=== PATIENT | male | born 1955 | race Caucasian/White ===

== ENCOUNTER 2017-08-10 11:44 | Observation (INO) | payer OTHER ==
[2017-08-10] MEDS: ASPIRIN 81 MG CHEW TABLET PO (12:06)
[2017-08-10 12:11] LABS: BASO # 0.1 10^3/uL (0.0-0.2); BASO % 1.2 % (0.0-1.0); EOS # 0.3 10^3/uL (0.0-0.50); EOS % 3.4 % (0.0-3.0); HEMATOCRIT 42.4 % (42.0-52.0); HEMOGLOBIN 14.9 g/dl (14.0-18.0); IMMATURE GRANULOCYTE % 0.5 % (0-3.0); LYMPH # 3.1 10^3/uL (1.5-4.5); LYMPH % 31.2 % (24.0-44.0); MEAN CORPUSCULAR HEMOGLOBIN 32.7 pg (27.0-33.0); MEAN CORPUSCULAR HGB CONC 35.1 g/dl (32.0-36.5); MEAN CORPUSCULAR VOLUME 93.2 fl (80.0-96.0); MONO # 0.6 10^3/uL (0.0-0.8); MONO % 5.9 % (0.0-5.0); NEUTROPHILS # 5.8 10^3/uL (1.8-7.7); NEUTROPHILS % 57.8 % (36.0-66.0); PLATELET COUNT, AUTOMATED 321 10^3/uL (150-450); RED BLOOD COUNT 4.55 10^6/uL (4.30-6.10); RED CELL DISTRIBUTION WIDTH 12.6 % (11.5-14.5)
[2017-08-10 12:39] LABS: NT-PRO BNP 249 PG/ML (<125)
[2017-08-10 12:43] LABS: ALBUMIN 3.9 GM/DL (3.2-5.2); ALBUMIN/GLOBULIN RATIO 0.98 (1.00-1.93); ALKALINE PHOSPHATASE 66 U/L (45-117); ALT/SGPT 26 U/L (12-78); ANION GAP 9 MEQ/L (8-16); AST/SGOT 13 U/L (7-37); BILIRUBIN,DIRECT < 0.1 MG/DL (0.0-0.2); BILIRUBIN,TOTAL 0.3 MG/DL (0.2-1.0); BLOOD UREA NITROGEN 13 MG/DL (7-18); CALCIUM LEVEL 8.8 MG/DL (8.8-10.2); CARBON DIOXIDE LEVEL 23 MEQ/L (21-32); CHLORIDE LEVEL 107 MEQ/L (98-107); CK-MB VALUE MASS 1.3 NG/ML (0.0-3.6); CPK CREATINE PHOSPHOKINASE 81 U/L (39-308); GLOMERULAR FILTRATION RATE > 60.0 (>49); GLUCOSE, FASTING 142 MG/DL (70-100); LIPASE 93 U/L (73-393); SODIUM LEVEL 139 MEQ/L (136-145); TOTAL PROTEIN 7.9 GM/DL (6.4-8.2); TROPONIN I < 0.02 NG/ML (< 0.10)
[2017-08-10] MEDS ORDERED: ISOVUE-370 76% 100ML VIAL (Q9967) As Ordered (15:05)
[2017-08-10 15:18] LABS: APPEARANCE, URINE CLEAR (CLEAR); BACTERIA, URINE AUTO NEGATIVE (NEGATIVE); BILIRUBIN, URINE AUTO NEGATIVE (NEGATIVE); BLOOD, URINE BLOOD NEGATIVE (NEGATIVE); COLOR, URINE STRAW (YELLOW); GLUCOSE, URINE (UA) AUTO NEGATIVE (NEGATIVE); KETONE, URINE AUTO NEGATIVE (NEGATIVE); LEUKOCYTE ESTERASE, URINE AUTO NEGATIVE (NEGATIVE); NITRITE, URINE AUTO NEGATIVE (NEGATIVE); PROTEIN, URINE AUTO NEGATIVE (NEGATIVE); RBC, URINE AUTO 0 /HPF (0-3); SPECIFIC GRAVITY URINE AUTO 1.004 (1.002-1.035); SQUAMOUS EPITHELIAL CELL UR AU 0 /HPF (0-6); UROBILINOGEN, URINE AUTO 0.2 mg/dL (0.0-2.0); WBC, URINE AUTO 0 /HPF (0-3)
[2017-08-10] MEDS: IPRATROPIUM 0.5MG/ALBUTEROL 2.5MG INH SOL UD 3ML (DUONEB)(J7620) NEB (15:52)
[2017-08-10 16:08] LABS: ABG BASE EXCESS -1.6 (-2.0-2.0); ABG HCO3 21.1 MEQ/L (22.0-26.0); ABG O2 SATURATION 99.6 % (95.0-99.0); ABG PARTIAL PRESSURE CO2 30.4 mmHg (35.0-45.0); ABG PARTIAL PRESSURE O2 253.1 mmHg (75.0-100.0); ABG STANDARD HCO3 23.2 MEQ/L (22.0-26.0); ABG TOTAL CO2 22.1 MEQ/L (23.0-31.0)
[2017-08-10] MEDS: NICOTINE 21MG/24HR 1 EA TRANSDERMAL TD (18:04)
[2017-08-10 20:26] LABS: CHOLESTEROL LEVEL 234 MG/DL (<200); CHOLESTEROL RISK RATIO 5.571 (<5); HDL CHOLESTEROL 42 MG/DL (>40); LDL CHOLESTEROL 154.6 MG/DL (<100); NON-HDL-C 192 MG/DL; TRIGLYCERIDES LEVEL 187 MG/DL (<150)
[2017-08-10 20:27] LABS: TROPONIN I < 0.02 NG/ML (< 0.10)
[2017-08-10] MEDS ORDERED: SLF 3 ML SYR IV (22:45)
[2017-08-11 01:40] LABS: TROPONIN I < 0.02 NG/ML (< 0.10)
[2017-08-11 04:37] LABS: BASO # 0.2 10^3/uL (0.0-0.2); BASO % 1.4 % (0.0-1.0); EOS # 0.6 10^3/uL (0.0-0.50); EOS % 5.8 % (0.0-3.0); HEMATOCRIT 37.9 % (42.0-52.0); IMMATURE GRANULOCYTE % 0.3 % (0-3.0); LYMPH # 3.4 10^3/uL (1.5-4.5); LYMPH % 30.9 % (24.0-44.0); MEAN CORPUSCULAR HEMOGLOBIN 32.3 pg (27.0-33.0); MEAN CORPUSCULAR HGB CONC 34.3 g/dl (32.0-36.5); MEAN CORPUSCULAR VOLUME 94.3 fl (80.0-96.0); MONO # 0.7 10^3/uL (0.0-0.8); MONO % 6.6 % (0.0-5.0); NEUTROPHILS # 6.1 10^3/uL (1.8-7.7); PLATELET COUNT, AUTOMATED 295 10^3/uL (150-450); RED BLOOD COUNT 4.02 10^6/uL (4.30-6.10); RED CELL DISTRIBUTION WIDTH 12.6 % (11.5-14.5)
[2017-08-11 04:58] LABS: ANION GAP 5 MEQ/L (8-16); BLOOD UREA NITROGEN 12 MG/DL (7-18); CALCIUM LEVEL 8.3 MG/DL (8.8-10.2); CARBON DIOXIDE LEVEL 26 MEQ/L (21-32); CHLORIDE LEVEL 109 MEQ/L (98-107); GLOMERULAR FILTRATION RATE > 60.0 (>49); GLUCOSE, FASTING 140 MG/DL (70-100); MAGNESIUM LEVEL 2.1 MG/DL (1.8-2.4); POTASSIUM SERUM 4.7 MEQ/L (3.5-5.1); SODIUM LEVEL 140 MEQ/L (136-145)
[2017-08-11] MEDS: SLF 3 ML SYR IV ×2 (06:48→13:20)
[2017-08-11] MEDS: FLUoxetine 20 MG CAP PO (08:42)
[2017-08-11] MEDS: FLUoxetine 10 MG CAP PO (08:42)
[2017-08-11] MEDS: ASPIRIN 325 MG TAB PO (08:42)
[2017-08-11 19:38] LABS: BEDSIDE GLUCOSE 148 MG/DL (80-115)
== END 2017-08-11 17:00 | disposition home or self-care (01) ==
LOC: M ED 11:44 → M ED INP 19:03 → M PCU 21:37
DX: R07.89 Other chest pain (principal); R00.1 Bradycardia, unspecified; I10 Essential (primary) hypertension; F32.9 Major depressive disorder, single episode, unspecified; R06.02 Shortness of breath; Z79.899 Other long term (current) drug therapy; F17.210 Nicotine dependence, cigarettes, uncomplicated
CPT/HCPCS: Q9967

== ENCOUNTER 2018-11-27 17:03 | Emergency (ER) | payer OTHER ==
[~2018-11-27] VITALS: Ht 177.8 cm; Wt 95.3 kg
[~2018-11-27 17:03] MED LIST: ASPI81TA26 PO; ATOR40TA75 PO; FLUO10CA8 PO; FLUO40CA PO; NORV5TAB PO
[2018-11-27 17:49] LABS: BASO # 0.1 10^3/uL (0.0-0.2); BASO % 0.8 % (0.0-1.0); EOS # 0.2 10^3/uL (0.0-0.50); EOS % 1.5 % (0.0-3.0); HEMATOCRIT 38.3 % (42.0-52.0); HEMOGLOBIN 13.3 g/dl (13.5-17.5); LYMPH # 2.1 10^3/uL (1.5-4.5); LYMPH % 19.3 % (24.0-44.0); MEAN CORPUSCULAR HEMOGLOBIN 33.5 pg (27.0-33.0); MEAN CORPUSCULAR HGB CONC 34.7 g/dl (32.0-36.5); MEAN CORPUSCULAR VOLUME 96.5 fl (80.0-96.0); MONO # 1.1 10^3/uL (0.0-0.8); MONO % 10.2 % (0.0-5.0); NEUTROPHILS # 7.2 10^3/uL (1.8-7.7); NEUTROPHILS % 67.8 % (36.0-66.0); PLATELET COUNT, AUTOMATED 274 10^3/uL (150-450); RED BLOOD COUNT 3.97 10^6/uL (4.30-6.10); WHITE BLOOD COUNT 10.6 10^3/uL (4.0-10.0)
[2018-11-27 18:29] LABS: ALBUMIN 3.4 GM/DL (3.2-5.2); ALT/SGPT 32 U/L (12-78); BILIRUBIN,DIRECT 0.1 MG/DL (0.0-0.2); BILIRUBIN,TOTAL 0.3 MG/DL (0.2-1.0); BLOOD UREA NITROGEN 15 MG/DL (7-18); CALCIUM LEVEL 8.7 MG/DL (8.8-10.2); CARBON DIOXIDE LEVEL 22 MEQ/L (21-32); CHLORIDE LEVEL 104 MEQ/L (98-107); CK-MB VALUE MASS < 1.0 NG/ML (<3.6); CPK CREATINE PHOSPHOKINASE 97 U/L (39-308); CREATININE FOR GFR 1.27 MG/DL (0.70-1.30); GLOMERULAR FILTRATION RATE > 60.0 (>49); GLUCOSE, FASTING 113 MG/DL (70-100); MB/CK RELATIVE INDEX 1.03 (< OR =4); POTASSIUM SERUM 4.2 MEQ/L (3.5-5.1); SODIUM LEVEL 136 MEQ/L (136-145); THYROXINE (T4) 8.3 UG/DL (4.5-12.0); TOTAL PROTEIN 7.9 GM/DL (6.4-8.2); TROPONIN I < 0.02 NG/ML (< 0.10)
[2018-11-27 18:33] LABS: BILIRUBIN, URINE MANUAL NEGATIVE (NEGATIVE); GLUCOSE, URINE (UA) MANUAL NEGATIVE (NEGATIVE); KETONE, URINE MANUAL NEGATIVE (NEGATIVE); UROBILINOGEN, URINE MANUAL NORMAL (NORMAL)
[2018-11-27 18:35] LABS: BACTERIA, URINE NONE SEEN; RBC, URINE 0-1 /hpf (0-3); SQUAMOUS EPITHELIAL CELL URINE SMALL AMOUNT /hpf (SMALL AMT)
[2018-11-27 18:36] LABS: HYALINE CAST, URINE NONE SEEN /lpf (0-1); MUCUS, URINE SMALL AMOUNT (NEGATIVE)
[2018-11-27 19:00] VITALS: BP 100/52
[2018-11-27] MEDS ORDERED: NS 1,000 ML IV ONE (20:15)
[2018-11-27] MEDS ORDERED: ISOVUE-370 76% 100ML VIAL (Q9967) As Ordered ONE (20:27)
[2018-11-27] MEDS ORDERED: DOXYCYCLINE HYCLATE 100 MG TAB PO ONE (22:00)
[2018-11-27] MEDS ORDERED: DOXY-350 PO ×2 (22:16→23:01)
--- NOTE | 2018-11-27 22:34 | REPVR ---
EXAM: CT Angiography Chest With Contrast EXAM DATE/TIME: 11/27/2018 9:00 PM CLINICAL HISTORY: 63 years old, male; Chest pain TECHNIQUE: Imaging protocol: Axial computed tomographic angiography images of the chest with intravenous contrast using CT angiography protocol. Coronal and sagittal reformatted images were created and reviewed. 3D rendering: MIP reconstructed images were created and reviewed. Radiation optimization: All CT scans at this facility use at least one of these dose optimization techniques: automated exposure control; mA and/or kV adjustment per patient size (includes targeted exams where dose is matched to clinical indication); or iterative reconstruction. Contrast material: ISOVUE 370; Contrast volume: 75 ml; Contrast route: IV; COMPARISON: CT ANGIO CHEST 08/10/2017 3:11 PM FINDINGS: Pulmonary arteries: No pulmonary embolism is identified. Aorta: There is no thoracic aortic aneurysm, pseudoaneurysm, penetrating atherosclerotic ulcer, or dissection. There is ulcerative plaque in the descending thoracic aorta and mild calcifications of the thoracic aorta. Lungs: There is a 4 mm calcified granuloma in the left upper lobe (image 41 of the coronal MIP series 405), which is unchanged compared to the prior CT scan on 08/10/2017. The lungs are otherwise clear. There is no lung consolidation, pulmonary infarct, or mass. There are mild centrilobular and paraseptal emphysematous changes in the right upper lobe. The major airways are patent. Pleural space: Unremarkable. No pneumothorax. No pleural effusion. Heart: No cardiomegaly or pericardial effusion is noted. There are coronary artery calcifications. Mediastinum: No mediastinal mass, hemorrhage, or pneumomediastinum is noted. Spleen: Normal. No splenomegaly is noted. Incidental note is made of a small accessory spleen. Adrenals: Normal. No adrenal mass. Lymph nodes: Normal. No enlarged lymph nodes. Bones/joints: The imaged bony structures are intact. There is no suspicious osteolytic or osteoblastic lesion. There are degenerative changes in the thoracic spine. Soft tissues: Unremarkable. IMPRESSION: No acute findings in the chest. No pulmonary embolism. Electronically signed by: Ignacio Spencer On 11/27/2018 22:34:41 PM
--- NOTE | 2018-11-28 07:01 | ECGEPIP ---
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
--- NOTE | 2018-11-28 08:54 | REP ---
Portable chest, 05:26 p.m., single AP view with the patient upright: Comparison is the PA and lateral chest dated 08/10/2017. The lung contreras are clear. The cardiac size is normal. The radha, mediastinum, and skeletal structures are unremarkable. Impression: Negative portable chest. There is no interval change. Electronically Signed by Kenneth Landry MD 11/28/2018 08:46 A
[2018-12-01 00:08] LABS: Lyme Disease IgG/IgM Antibodie <0.91 ISR (0.00-0.90); Lyme Disease IgM Ab Quantitati <0.80 index (0.00-0.79)
== END 2018-11-27 23:01 | disposition home or self-care (01) ==
LOC: M ED 17:03
DX: R53.81 Other malaise (principal); I10 Essential (primary) hypertension; F33.9 Major depressive disorder, recurrent, unspecified; Z79.899 Other long term (current) drug therapy; Z79.82 Long term (current) use of aspirin; Z88.7 Allergy status to serum and vaccine; F17.210 Nicotine dependence, cigarettes, uncomplicated
CPT/HCPCS: 71045; 71275; 80048; 80076; 81000; 82550; 82553; 83605; 84436; 84443; 84484; 85025; 86617; 87040; 93005; 93041; 94760; 96360; 96361; 99285; Q9967

== ENCOUNTER 2020-10-03 03:32 | Inpatient (IN) | payer OTHER ==
[~2020-10-03] VITALS: Ht 177.8 cm; Wt 103.4 kg
[~2020-10-03 03:32] MED LIST changes: +DOXY-350 PO; +FLUO10CA16 PO; -FLUO10CA8 PO
[2020-10-03 03:59] LABS: BASO # 0.1 10^3/uL (0.0-0.2); BASO % 0.6 % (0.0-1.0); EOS % 0.1 % (0.0-3.0); HEMOGLOBIN 14.9 g/dl (13.5-17.5); LYMPH % 11.6 % (24.0-44.0); MEAN CORPUSCULAR HEMOGLOBIN 32.5 pg (27.0-33.0); MEAN CORPUSCULAR HGB CONC 33.9 g/dl (32.0-36.5); MEAN CORPUSCULAR VOLUME 95.9 fl (80.0-96.0); MONO # 0.6 10^3/uL (0.0-0.8); MONO % 3.1 % (2.0-8.0); NEUTROPHILS # 14.7 10^3/uL (1.5-8.5); PLATELET COUNT, AUTOMATED 355 10^3/uL (150-450); RED BLOOD COUNT 4.59 10^6/uL (4.30-6.10); WHITE BLOOD COUNT 17.5 10^3/uL (4.0-10.0)
[2020-10-03 05:02] LABS: ALBUMIN 4.3 GM/DL (3.2-5.2); BILIRUBIN,DIRECT 0.1 MG/DL (0.0-0.2); BILIRUBIN,TOTAL 0.4 MG/DL (0.2-1.0); CALCIUM LEVEL 9.1 MG/DL (8.8-10.2); CREATININE FOR GFR 1.54 MG/DL (0.70-1.30); GLOMERULAR FILTRATION RATE 48.4 (>49); POTASSIUM SERUM 4.3 MEQ/L (3.5-5.1); TOTAL PROTEIN 8.4 GM/DL (6.4-8.2)
[2020-10-03] MEDS ORDERED: ONDANSETRON 4MG/2ML VIAL IV ONE (05:50)
[2020-10-03] MEDS ORDERED: ISOVUE-370 76% 100ML VIAL As Ordered ONE (05:54)
[2020-10-03] MEDS: MORPHINE 4 MG/ML 1ML VIAL/SYRINGE (J2270) IV PRN ×2 (06:23→10:50)
[2020-10-03] MEDS ORDERED: FLUO20CA22 PO (06:36)
[2020-10-03] MEDS ORDERED: LISI10TA22 PO (06:36)
[2020-10-03] MEDS ORDERED: D31000TA2 PO (06:36)
[2020-10-03] MEDS ORDERED: METF-838 PO (06:36)
[2020-10-03] MEDS ORDERED: ASPI-161 PO (06:36)
[2020-10-03] MEDS ORDERED: ATOR40TA75 PO (06:36)
[2020-10-03] MEDS ORDERED: GABA-282 PO (06:36)
--- NOTE | 2020-10-03 07:08 | REPVR ---
PROCEDURE INFORMATION: Exam: CT Abdomen And Pelvis With Contrast Exam date and time: 10/03/2020 5:47 AM Age: 65 years old Clinical indication: Abdominal pain; Localized; Right upper quadrant (ruq); Additional info: Ruq abd pain, pancreatitis TECHNIQUE: Imaging protocol: Computed tomography of the abdomen and pelvis with contrast. Radiation optimization: All CT scans at this facility use at least one of these dose optimization techniques: automated exposure control; mA and/or kV adjustment per patient size (includes targeted exams where dose is matched to clinical indication); or iterative reconstruction. Contrast material: ISO; Contrast volume: 100 ml; Contrast route: INTRAVENOUS (IV); COMPARISON: No relevant prior studies available. FINDINGS: Lungs: The visualized portions of the lung bases are normal. Liver: There is a diffuse decrease in hepatic parenchymal density, consistent with moderate fatty infiltration. There are regions of focal parenchymal sparing adjacent to the gallbladder fossa.There is diffuse mild enlargement of the liver measuring 17 cm. Gallbladder and bile ducts: The gallbladder is partially contracted. There is suspicion of small calculi is such as on axial image 41. There is no pericholecystic fluid. There is no biliary dilatation. Pancreas: There is edema of the pancreatic neck suggesting focal pancreatitis with some surrounding fat stranding. There is no dilatation of the pancreatic duct or evidence of calculi. Spleen: The spleen is normal. Adrenal glands: The adrenal glands are normal. Kidneys and ureters: There is mild left renal cortical atrophy and decrease in volume and intensity of contrast opacification. The right kidney is unremarkable. There is high-grade left renal artery stenosis on coronal image 55. Stomach and bowel: Unremarkable. No obstruction. No mucosal thickening. Appendix: A normal appendix is identified. Intraperitoneal space: Unremarkable. No free air. No significant fluid collection. Vasculature: The vasculature demonstrates diffuse moderate atherosclerotic calcification. The vasculature demonstrates diffuse moderate atherosclerotic calcification. There is 35 mm ectasias of the mid abdominal aorta at the L2 level compared to a reference diameter of 22 mm just below the renal arteries. Lymph nodes: Unremarkable. No enlarged lymph nodes. Urinary bladder: Unremarkable as visualized. Reproductive: Unremarkable as visualized. Bones/joints: The spine demonstrates moderate degenerative changes at multiple levels. There is significant spinal stenosis from L2 through L5. Soft tissues: Unremarkable. IMPRESSION: 1. The gallbladder is partially contracted. There is suspicion of small calculi is such as on axial image 41. There is no pericholecystic fluid. There is no biliary dilatation. 2. There is a diffuse decrease in hepatic parenchymal density, consistent with moderate fatty infiltration. There are regions of focal parenchymal sparing adjacent to the gallbladder fossa.There is diffuse mild enlargement of the liver measuring 17 cm. 3. There is edema of the pancreatic neck suggesting focal pancreatitis with some surrounding fat stranding. There is no dilatation of the pancreatic duct or evidence of calculi. 4. There is mild left renal cortical atrophy and decrease in volume and intensity of contrast opacification. The right kidney is unremarkable. 5. The vasculature demonstrates diffuse moderate atherosclerotic calcification. There is 35 mm ectasias of the mid abdominal aorta at the L2 level compared to a reference diameter of 22 mm just below the renal arteries. Follow-up imaging in 3 years is recommended. Follow-up imaging in 3 years is recommended. 6. There is high-grade left renal artery stenosis on coronal image 55. Follow-up CTA is recommended. 7. The spine demonstrates moderate degenerative changes at multiple levels. There is significant spinal stenosis from L2 through L5. Electronically signed by: Diego Conde On 10/03/2020 07:08:49 AM
--- NOTE | 2020-10-03 07:15 | REPVR ---
PROCEDURE INFORMATION: Exam: US Abdomen, Limited; Right Upper Quadrant Exam date and time: 10/03/2020 6:31 AM Age: 65 years old Clinical indication: Abdominal pain; Acute; Additional info: Ruq abd pain TECHNIQUE: Imaging protocol: US abdomen. Real time ultrasound with image documentation. Limited exam focused on the right upper quadrant. COMPARISON: CT ABD/PEL W/IV CONTRAST ONLY 10/03/2020 5:59 AM FINDINGS: Liver: There is a diffuse increase in hepatic parenchymal echogenicity, consistent with fatty infiltration. Gallbladder: The gallbladder wall measures 2.4 mm. There is question of shadowing from the gallbladder neck region. Common bile duct: The common bile duct measures 5 mm. Pancreas: The pancreas is obscured by bowel gas but did demonstrate pancreatitis in the neck region on separately reported CT. Right kidney: Right kidney measures 11.4 x 5.5 x 5.0 cm. Cortex is preserved with no evidence of hydronephrosis or calculus. IMPRESSION: 1. The gallbladder wall measures 2.4 mm. There is question of shadowing from the gallbladder neck region. 2. The pancreas is obscured by bowel gas but did demonstrate pancreatitis in the neck region on separately reported CT. Electronically signed by: Diego Conde On 10/03/2020 07:15:15 AM
[2020-10-03 08:26] LABS: RSV AMPLIFICATION NEGATIVE (NEGATIVE)
--- NOTE | 2020-10-03 10:21 | REP ---
INDICATION: pancreatits. COMPARISON: Comparison CT study of the abdomen pelvis is from earlier on this same date. Images demonstrate evidence of acute pancreatitis.. TECHNIQUE: MRI MRCP protocol. Axial and coronal T1 and T2 weighted scans are acquired including spin echo, in and out of phase, gradient echo and MRCP images. Maximum intensity projection images are generated and reviewed. FINDINGS: There is considerable peripancreatic and mesenteric edema in the upper abdomen consistent with acute pancreatitis. There is a thin sliver of fluid surrounding the liver and some sliver of fluid is seen in the pericolic gutters in the upper abdomen bilaterally. There is no evidence of intrapancreatic or loculated peripancreatic fluid collection. The main pancreatic duct is not felt to be dilated. The no filling defect is seen within the gallbladder. No biliary ductal dilation is observed. Common bile duct measures 6 mm. There is no MRCP evidence to suggest choledocholithiasis. IMPRESSION: Extensive intrapancreatic peripancreatic and mesenteric edema in the upper abdomen consistent with acute pancreatitis. No loculated fluid collection is seen. No evidence of abscess or hemorrhage. No evidence of biliary tract stone disease. No biliary ductal or pancreatic ductal dilation. <Electronically signed by Wilber Rodriguez > 10/03/20 [id number]
[2020-10-03] MEDS ORDERED: GLUCOSE 4GM CHEW TABLET PO PRN (10:55)
[2020-10-03] MEDS ORDERED: DEXTROSE 50% 50 ML SYRINGE IV PRN (10:55)
[2020-10-03] MEDS ORDERED: MORPHINE 4 MG/ML 1ML VIAL/SYRINGE (J2270) IV PRN (10:55)
[2020-10-03] MEDS ORDERED: oxyCODONE 5MG TAB PO PRN (10:55)
[2020-10-03] MEDS ORDERED: GLUCAGON INJ 1MG VIAL SC PRN (10:55)
[2020-10-03] MEDS ORDERED: atenoloL 25 MG TAB PO ONE ×2 (12:00→15:00)
[2020-10-03] MEDS ORDERED: oxyCODONE 10 MG CR TAB PO ONE (12:00)
[2020-10-03] MEDS ORDERED: ISOSORBIDE DIN (ISORDIL) 10 MG TAB PO SCH (12:00)
[2020-10-03] MEDS ORDERED: ENOXAPARIN 40MG/0.4ML SYRINGE (J1650 PER 10MG) SC ONE (12:00)
[2020-10-03] MEDS: NS 1,000 ML IV SCH ×3 (12:19→22:00)
[2020-10-03] MEDS ORDERED: ALBUTEROL SULFATE 2.5 MG/0.5 ML INH NEB SOLN NEB PRN (12:55)
[2020-10-03 13:00] VITALS: BP 173/99
[2020-10-03] MEDS ORDERED: cloNIDine 0.1MG TABLET PO ONE (13:00)
[2020-10-03] MEDS ORDERED: METOCLOPRAMIDE INJ 10MG/2ML VIAL (J2765 PER 1) IV ONE (13:00)
[2020-10-03] MEDS ORDERED: oxyCODONE 5MG TAB PO ONE (13:00)
[2020-10-03] MEDS ORDERED: MORPHINE 10 MG/ML 1ML VIAL (J2270) IV ONE (13:00)
[2020-10-03] MEDS ORDERED: ACETAMINOPHEN 500 MG TAB PO ONE (13:00)
--- NOTE | 2020-10-03 13:00 | HPEPDOC ---
[facility] Medical History & Physical Date of Admission Oct 03, 2020 Date of Service: Oct 03, 2020 History and Physical CHIEF COMPLAINT: abd pain HISTORY OF PRESENT ILLNESS: 65 y/o w pmh 100pack year smoking, depression, atypical chest pain, sinus bradycardia, abdominal vascular ectasia w repeat imaging recommended in 3 yrs,? left renal artery stenosis c/o acute onset epigastric abd pain at 8:30pm last night w n/v/ decreased appetite w/o fever, chills, jaundice, and denies history of etoh abuse or gallstones in the past. Pt did not take any medications for the pain, but pain was persistent 10/10 "like someone punched me in the stomach" w/o radiation between the shoulder blades or the back. He denies acholic white colo red fatty stools, trauma to the abdomen, prior history of hypertryglyceridemia,or spider bite. pt has been on lisinopril. In the ER, CT abd: pancreatitis, ?left renal artery stenosis, and lipase>100. He denies any dysuria, urgency, frequency. sbp was 189 w c/o headache w/o chest pressure/tightness, changes in vision, or sob.Hospitalist was called to admit for acute pancreatitis and acute hypertensive urgency due to pain and ivfluids. PAST MEDICAL HISTORY: depression, atypical chest pain, sinus bradycardia,sinus bradycardia, abdominal vascular ectasia w repeat imaging recommended in 3 yrs,? left renal artery stenosis PAST SURGICAL HISTORY: none SOCIAL HISTORY: 2ppd x >50 years, no etoh abuse, denies recreational drug use FAMILY HISTORY: brother NC mother cva father abd aortic aneurysm ALLERGIES: Please see below. REVIEW OF SYSTEMS:10 point ros negative aside from +findings on HPI HOME MEDICATIONS: Please see below. PHYSICAL EXAMINATION: VITAL SIGNS: see below GENERAL APPEARANCE: anicteric no pallor no distress HEENT: PERRLA EOMI dry mm no jvd no carotid bruit CARDIOVASCULAR: S1S2 RRR. LUNGS: CTAB AEBE ABDOMEN: +epigatric tenderness +BS soft no rebound no guarding EXTREMITIES: no edema LABORATORY DATA: See below. IMAGING: see below MICROBIOLOGY: Please see below. ASSESSMENT: 65 y/o w pmh 100pack year smoking, depression, atypical chest pain, sinus bradycardia, abdominal vascular ectasia w repeat imaging recommended in 3 yrs,? left renal artery stenosis c/o acute onset epigastric abd pain at 8:30pm last night w n/v/ decreased appetite w/o fever, chills, jaundice, and denies history of etoh abuse or gallstones in the past. Pt did not take any medications for the pain, but pain was persistent 10/10 "like someone punched me in the stomach" w/o radiation between the shoulder blades or the back. He denies acholic white colored fatty stools, trauma to the abdomen, prior history of hypertryglyceridemia,or spider bite. pt has been on lisinopril. In the ER, CT a bd: pancreatitis, ?left renal artery stenosis, and lipase>100. He denies any dysuria, urgency, frequency. sbp was 189 w c/o headache w/o chest pressure/tightness, changes in vision, or sob.Hospitalist was called to admit for acute pancreatitis and acute hypertensive urgency due to pain and ivfluids. Acute nonalcoholic acalculous pancreatitis possible lisinopril-induced pancreatitis Hypertensive Urgency Active Tobacco abuse w >100 pack year h/o smoking H/o abdominal vascular ectasia ?left renal artery stenosis Possible peripheral vascular disease Headache due to uncontrolled HTN Depression acute kidney injury due to pancreatitis and ? left renal artery stenosis PLAN: Uncontrolled HTN due to severe pain. Morphine for break through pain. q4hrs oxycodone. npo ivfluids. nitroglycerin ointment q4hrs until bp is controlled, atenolol 25mg po x 1, dc lisinopril due to ?left renal artery stenosis and possible cause of pancreatitis. npo for renal doppler in am. once bp controlled, start on isosorbide dinitrate and titrate and dc nitroglycerin ointment q4hrs. recheck bmp after ivfluids. avoid nephrotoxins, renally dose medications, and cycle bmp, lipase, card kebede. lovenox for dvt prophylaxis. Vital Signs Vital Signs Date Time Temp Pulse Resp B/P (MAP) Pulse Ox O2 Delivery O2 Flow Rate FiO2 10/03/20 11:00 82 18 178/83 (114) 96 10/03/20 06:23 Room Air 10/03/20 06:09 96.4 Laboratory Data Labs 24H Laboratory Tests 2 10/03/20 03:45: Immature Granulocyte % (Auto) 0.6, Neutrophils (%) (Auto) 84.0H, Lymphocytes (%) (Auto) 11.6L, Monocytes (%) (Auto) 3.1, Eosinophils (%) (Auto) 0.1, Basophils (%) (Auto) 0.6, Neutrophils # (Auto) 14.7H, Lymphocytes # (Auto) 2.0, Monocytes # (Auto) 0.6, Eosinophils # (Auto) 0.0, Basophils # (Auto) 0.1, Nucleated Red Blood Cells % (auto) 0.0, Anion Gap 11, Glomerular Filtration Rate 48.4L, Calcium Level 9.1, Total Bilirubin 0.4, Direct Bilirubin 0.1, Aspartate Amino Transf (AST/SGOT) 26, Alanine Aminotransferase (ALT/SGPT) 39, Alkaline Phosphatase 83, Total Protein 8.4H, Albumin 4.3, Albumin/Globulin Ratio 1.0, Lipase 3107H 10/03/20 06:16: Coronavirus (COVID-19)(PCR) NEGATIVE, Influenza Type A (RT-PCR) NEGATIVE, Influenza Type B (RT-PCR) NEGATIVE, Respiratory Syncytial Virus (PCR) NEGATIVE CBC/BMP Laboratory Tests 10/03/20 03:45 Home Medications Scheduled Aspirin (Aspirin EC) 81 Mg Tablet.dr, 81 MG PO DAILY Atorvastatin Calcium (Atorvastatin Calcium) 40 Mg Tablet, 40 MG PO DAILY Cholecalciferol (Vitamin D3) (Vitamin D3) 1,000 Unit Tablet, 1,000 UNITS PO DAILY Fluoxetine Hcl (Fluoxetine HCl) 20 Mg Capsule, 20 MG PO DAILY Gabapentin (Gabapentin) 300 Mg Capsule, 300 MG PO DAILY Lisinopril (Lisinopril) 10 Mg Tablet, 10 MG PO DAILY Metformin HCl (Metformin HCl ER) 500 Mg Tab.er.24h, 500 MG PO DAILY PATIENT HAS BEEN TAKING TWICE A DAY Allergies Coded Allergies: Pertussis Vaccines (Verified Allergy, Severe, ANAPHYLAXIS, 11/27/18) A-FIB/CHADSVASC A-FIB History Current/History of A-Fib/PAF?: No Current PO Anticoag Therapy: No Age/Risk Factor Scoring CHADSVASC: CHADSVASC Response (Comments) Value Age Risk Factor Age 65-74 years old 1 Gender Risk Factor Male 0 Hx of CHF No 0 Hx of HTN Yes 1 Hx of Stroke/TIA/or VTE No 0 Hx of Diabetes No 0 Hx of Vascular Disease No 0 Total 2 Treatment Treatment ordered: NONE JENNYFER CORONEL MD Oct 03, 2020 12:13
[2020-10-03] MEDS: NITROGLYCERIN 2% OINT 1 GM *U/D* PKT TOP SCH ×2 (13:28→17:00)
[2020-10-03 14:40] VITALS: BP 174/94
[2020-10-03] MEDS ORDERED: ISOSORBIDE DIN. (ISORDIL) 20 MG TAB PO ONE (15:00)
[2020-10-03] MEDS: NICOTINE 21MG/24HR 1 EA TRANSDERMAL TD SCH (15:02)
[2020-10-03 16:22] LABS: CALCIUM LEVEL 8.5 MG/DL (8.8-10.2); CREATININE FOR GFR 1.32 MG/DL (0.70-1.30); GLOMERULAR FILTRATION RATE 57.8 (>49); POTASSIUM SERUM 4.6 MEQ/L (3.5-5.1)
[2020-10-03 17:22] VITALS: BP 114/77
[2020-10-03] MEDS: ATORVASTATIN 20 MG TAB PO SCH (17:31)
[2020-10-03] MEDS: GABAPENTIN 300 MG CAP PO SCH (17:31)
[2020-10-03] MEDS: FLUoxetine 20 MG CAP PO SCH (17:31)
[2020-10-03] MEDS: HumaLOG INSULIN (NovoLOG) PER UNIT SC SCH (17:32)
[2020-10-03] MEDS ORDERED: cloNIDine 0.1MG TABLET PO PRN (19:00)
[2020-10-03 19:22] LABS: C REACTIVE PROTEIN QUANTITATIV 1.07 MG/DL (0.00-0.30)
[2020-10-03] MEDS: atenoloL 50 MG TAB PO SCH (21:34)
[2020-10-03 22:00] VITALS: BP 134/73
--- NOTE | 2020-10-03 22:52 | ECGEPIP ---
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
[2020-10-04] MEDS: HumaLOG INSULIN (NovoLOG) PER UNIT SC SCH ×5 (00:22→23:57)
[2020-10-04 06:00] VITALS: BP 111/53
[2020-10-04 06:18] LABS: HEMATOCRIT 37.2 % (42.0-52.0); MEAN CORPUSCULAR HEMOGLOBIN 32.6 pg (27.0-33.0); MEAN CORPUSCULAR HGB CONC 33.6 g/dl (32.0-36.5); MEAN CORPUSCULAR VOLUME 96.9 fl (80.0-96.0); PLATELET COUNT, AUTOMATED 313 10^3/uL (150-450); RED BLOOD COUNT 3.84 10^6/uL (4.30-6.10); WHITE BLOOD COUNT 17.7 10^3/uL (4.0-10.0)
[2020-10-04 06:20] LABS: HEMOGLOBIN 12.5 g/dl (13.5-17.5)
[2020-10-04 06:39] LABS: HEMOGLOBIN A1c 7.8 %
[2020-10-04 06:46] LABS: ALBUMIN 3.1 GM/DL (3.2-5.2); ALT/SGPT 25 U/L (12-78); BILIRUBIN,TOTAL 0.3 MG/DL (0.2-1.0); BLOOD UREA NITROGEN 18 MG/DL (7-18); CALCIUM LEVEL 8.2 MG/DL (8.8-10.2); CARBON DIOXIDE LEVEL 20 MEQ/L (21-32); CHLORIDE LEVEL 111 MEQ/L (98-107); CHOLESTEROL LEVEL 111 MG/DL (<200); CREATININE FOR GFR 1.26 MG/DL (0.70-1.30); GLOMERULAR FILTRATION RATE > 60.0 (>49); GLUCOSE, FASTING 155 MG/DL (70-100); HDL CHOLESTEROL 37 MG/DL (>40); LDL CHOLESTEROL 45 MG/DL (<100); LIPASE 960 U/L (73-393); NON-HDL-C 74 MG/DL; POTASSIUM SERUM 4.5 MEQ/L (3.5-5.1); SODIUM LEVEL 139 MEQ/L (136-145); TOTAL PROTEIN 6.4 GM/DL (6.4-8.2); TRIGLYCERIDES LEVEL 144 MG/DL (<150)
[2020-10-04] MEDS ORDERED: NS 1,000 ML IV SCH (08:00)
[2020-10-04 08:06] VITALS: BP 121/63
[2020-10-04] MEDS: GABAPENTIN 300 MG CAP PO SCH (08:46)
[2020-10-04] MEDS: FLUoxetine 20 MG CAP PO SCH (08:46)
[2020-10-04] MEDS: ATORVASTATIN 20 MG TAB PO SCH (08:46)
[2020-10-04] MEDS: VITAMIN D 1,000 INTERNATIONAL UNITS TABLET PO SCH (08:46)
[2020-10-04] MEDS: NICOTINE 21MG/24HR 1 EA TRANSDERMAL TD SCH (08:47)
[2020-10-04] MEDS: atenoloL 50 MG TAB PO SCH (08:47)
[2020-10-04] MEDS: D5W/0.45% SODIUM CHLORIDE 1,000 ML IV SCH ×3 (08:47→23:54)
[2020-10-04] MEDS: ENOXAPARIN 40MG/0.4ML SYRINGE (J1650 PER 10MG) SC SCH (08:48)
[2020-10-04] MEDS: ASPIRIN 81MG ENTERIC TABLET PO SCH (08:48)
--- NOTE | 2020-10-04 11:32 | IPNPDOC ---
Date Seen The patient was seen on 10/04/20. Progress Note S: decreased epigastric pain 2/10 when not moving laying on left lateral position. no n/v/f/c/diarrhea O: PHYSICAL EXAMINATION: VITAL SIGNS: see below GENERAL APPEARANCE: anicteric no pallor no distress lying on left lateral position. HEENT: PERRLA EOMI dry mm no jvd no carotid bruit CARDIOVASCULAR: S1S2 RRR. LUNGS: CTAB AEBE ABDOMEN: +epigatric tenderness +BS soft no rebound no guarding EXTREMITIES: no edema LABORATORY DATA: See below. IMAGING: see below MICROBIOLOGY: Please see below. ASSESSMENT: 65 y/o w pmh 100pack year smoking, depression, atypical chest pain, sinus luke ycardia, abdominal vascular ectasia w repeat imaging recommended in 3 yrs,? left renal artery stenosis c/o acute onset epigastric abd pain at 8:30pm last night w n/v/ decreased appetite w/o fever, chills, jaundice, and denies history of etoh abuse or gallstones in the past. Pt did not take any medications for the pain, but pain was persistent 10/10 "like someone punched me in the stomach" w/o radi ation between the shoulder blades or the back. He denies acholic white colored fatty stools, trauma to the abdomen, prior history of hypertryglyceridemia,or spider bite. pt has been on lisinopril. In the ER, CT abd: pancreatitis, ?left renal artery stenosis, and lipase>100. He denies any dysuria, urgency, frequency. sbp was 189 w c/o headache w/o chest pressure/tightness, changes in vision, or sob.Hospitalist was called to admit for acute pancreatitis and acute hypertensive urgency due to pain and ivfluids. Acute nonalcoholic acalculous pancreatitis -npo. ivfluids. mrcp negative. -dc'ed lisinopril -advance diet in am if lipase is normal and no pain -hypoglycemic protocol possible lisinopril-induced pancreatitis -dced lisinopril Hypertensive Urgency -resolved -on bid atenolol Active Tobacco abuse w >100 pack year h/o smoking -cessation counselling -nicotine replacement H/o abdominal vascular ectasia -repeat imaging in 3 months ?left renal artery stenosis -dce'd lisinopril -renal doppler -refer to vascular surgery for stent acute kidney injury -on ivfluids -left renal artery stenosis on ct. confirm w us. refer to vascular surgery Headache due to uncontrolled HTN -resolved Depression -chronic disposition 2-3 days . [facility]O Vital Signs Date Time Temp Pulse Resp B/P (MAP) Pulse Ox O2 Delivery O2 Flow Rate FiO2 10/04/20 08:47 43 121/63 10/04/20 06:00 98.0 19 93 Room Air I&O- Last 24 Hours up to 6 AM 10/04/20 06:00 Intake Total 3000 ml Output Total 0 ml Balance 3000 ml Laboratory Data 24H LABS Laboratory Tests 2 10/03/20 15:49: Erythrocyte Sedimentation Rate 18, Anion Gap 6L, Glomerular Filtration Rate 57.8, Calcium Level 8.5L, C-Reactive Protein, Quantitative 1.07H, Procalcitonin <0.05 10/03/20 17:12: Bedside Glucose (Misc Panel) 205H 10/03/20 23:37: Bedside Glucose (Misc Panel) 164H 10/04/20 03:29: Urine Color YELLOW, Urine Appearance CLEAR, Urine pH 6.0, Urine Specific [place] 1.038, Urine Protein 1+H, Urine Glucose (UA) 1+H, Urine Ketones TRACEH, Urine Blood 1+H, Urine Nitrite NEGATIVE, Urine Bilirubin NEGATIVE, Urine Urobilinogen 0.2, Urine Leukocyte Esterase NEGATIVE, Urine WBC (Auto) 1, Urine RBC (Auto) 2, Urine Hyaline Casts (Auto) 3, Urine Bacteria (Auto) NEGATIVE, Urine Squamous Epithelial Cells 0, Urine Mucus (Auto) SMALL, Urine Sperm (Auto) 10/04/20 05:40: Nucleated Red Blood Cells % (auto) 0.0, Anion Gap 8, Glomerular Filtration Rate > 60.0, Estimated Mean Plasma Glucose 177H, Hemoglobin A1c 7.8, Calcium Level 8.2L, Total Bilirubin 0.3, Aspartate Amino Transf (AST/SGOT) 16, Alanine Aminotransferase (ALT/SGPT) 25, Alkaline Phosphatase 61, Total Protein 6.4#, Albumin 3.1#L, Albumin/Globulin Ratio 0.9, Triglycerides Level 144, Total Cholesterol 111, LDL Cholesterol 45, Non-HDL Cholesterol (LDL + VLDL) 74, Total HDL Cholesterol 37L, Cholesterol/HDL Ratio 3.000, Lipase 960H 4/29/21 06:18: Bedside Glucose (Misc Panel) 154H CBC/BMP Laboratory Tests 10/03/20 15:49 10/04/20 05:40 Microbiology Microbiology 10/03/20 Blood Culture, Received Pending 10/03/20 Blood Culture, Received Pending JENNYFER CORONEL MD Oct 04, 2020 11:10
[2020-10-04] MEDS: ISOSORBIDE DIN (ISORDIL) 10 MG TAB PO SCH ×2 (12:00→16:32)
[2020-10-04 12:01] VITALS: BP 130/55
[2020-10-04] MEDS: SODIUM BICARBONATE 325 MG TAB PO SCH ×3 (12:30→21:36)
[2020-10-04 14:00] VITALS: BP 133/61
--- NOTE | 2020-10-04 16:17 | REP ---
INDICATION: renal artery stenosis? htn urgency; HTN URGENCY. COMPARISON: None. TECHNIQUE: Real-time sonographic evaluation of the kidneys is performed.Duplex Doppler evaluation of renal arteries is performed. FINDINGS: Renal cortical echogenicity pattern is normal bilaterally and contours are smooth. There is no evidence of hydronephrosis, cyst, mass, or calculus in either kidney. The right kidney measures 11.5 x 5.7 x 4.8 cm. Left renal dimensions are 10.0 x 3.9 x 4.9 cm. The urinary bladder is unremarkable. Ureteral jets are not seen in the urinary bladder with Doppler color evaluation. There is mild free fluid above the bladder. Duplex Doppler evaluation of renal arteries is performed. The peak systolic velocity in the abdominal aorta at the level of the renal arteries is 87 centimeter/second. The peak systolic velocity of the proximal right renal artery is 216 centimeter/second. Renal to aortic ratio 2.5. Resistive indices right kidney range between 0.84 and 0.88. Acceleration times range between 0.034 and 0.044. Peak systolic velocity in the main left renal artery is 487 centimeters/second, renal to aortic ratio 5.6. Resistive indices left kidney range between 0.65 and 0.80. Acceleration times range between 0.036 and 0.192. IMPRESSION: Duplex Doppler sonographic evidence of severe stenosis origin main left renal artery. Possible mild stenosis origin main right renal artery. <Electronically signed by Kenneth Nguyen > 10/04/20 [id number]
[2020-10-04 16:31] VITALS: BP 124/61
[2020-10-04 21:17] VITALS: BP 115/58
[2020-10-05 05:26] VITALS: BP 143/64
[2020-10-05] MEDS: D5W/0.45% SODIUM CHLORIDE 1,000 ML IV SCH (06:47)
[2020-10-05] MEDS: HumaLOG INSULIN (NovoLOG) PER UNIT SC SCH ×2 (06:48→12:18)
[2020-10-05] MEDS: ISOSORBIDE DIN (ISORDIL) 10 MG TAB PO SCH (06:48)
[2020-10-05 06:55] LABS: HEMATOCRIT 33.9 % (42.0-52.0); HEMOGLOBIN 11.5 g/dl (13.5-17.5); MEAN CORPUSCULAR HEMOGLOBIN 33.4 pg (27.0-33.0); MEAN CORPUSCULAR HGB CONC 33.9 g/dl (32.0-36.5); MEAN CORPUSCULAR VOLUME 98.5 fl (80.0-96.0); PLATELET COUNT, AUTOMATED 231 10^3/uL (150-450); RED BLOOD COUNT 3.44 10^6/uL (4.30-6.10); WHITE BLOOD COUNT 16.2 10^3/uL (4.0-10.0)
[2020-10-05 07:15] LABS: ALBUMIN 2.5 GM/DL (3.2-5.2); ALT/SGPT 15 U/L (12-78); BILIRUBIN,TOTAL 0.3 MG/DL (0.2-1.0); BLOOD UREA NITROGEN 12 MG/DL (7-18); CALCIUM LEVEL 7.5 MG/DL (8.8-10.2); CARBON DIOXIDE LEVEL 20 MEQ/L (21-32); CHLORIDE LEVEL 111 MEQ/L (98-107); CREATININE FOR GFR 1.03 MG/DL (0.70-1.30); GLOMERULAR FILTRATION RATE > 60.0 (>49); GLUCOSE, FASTING 167 MG/DL (70-100); LIPASE 173 U/L (73-393); POTASSIUM SERUM 3.6 MEQ/L (3.5-5.1); SODIUM LEVEL 137 MEQ/L (136-145); TOTAL PROTEIN 6.4 GM/DL (6.4-8.2)
[2020-10-05] MEDS ORDERED: ISOS1TAB13 PO ×2 (07:35→16:18)
[2020-10-05] MEDS ORDERED: SELF1KIT MC ×3 (07:35→16:20)
[2020-10-05 08:48] VITALS: BP 144/74
[2020-10-05] MEDS: ASPIRIN 81MG ENTERIC TABLET PO SCH (08:48)
[2020-10-05] MEDS: GABAPENTIN 300 MG CAP PO SCH (08:48)
[2020-10-05] MEDS: VITAMIN D 1,000 INTERNATIONAL UNITS TABLET PO SCH (08:49)
[2020-10-05] MEDS: ENOXAPARIN 40MG/0.4ML SYRINGE (J1650 PER 10MG) SC SCH (08:49)
[2020-10-05] MEDS: ATORVASTATIN 20 MG TAB PO SCH (08:49)
[2020-10-05] MEDS: FLUoxetine 20 MG CAP PO SCH (08:49)
[2020-10-05] MEDS: NICOTINE 21MG/24HR 1 EA TRANSDERMAL TD SCH (08:50)
[2020-10-05] MEDS ORDERED: ISOSORBIDE DIN. (ISORDIL) 20 MG TAB PO ONE (09:00)
[2020-10-05] MEDS ORDERED: SODIUM BICARBONATE 325 MG TAB PO ONE (10:00)
[2020-10-05] MEDS ORDERED: SODIUM BICARBONATE 150 MEQ in D5W 1,000 ML IV ONE (10:00)
--- NOTE | 2020-10-05 10:25 | DS.PDOC ---
Discharge Summary General Date of Admission Oct 03, 2020 at 11:06 Date of Discharge 10/05/20 Discharge Summary DISCHARGE DIAGNOSES: Acute nonalcoholic acalculous pancreatitis lisinopril-induced pancreatitis Hypertensive Urgency Active Tobacco abuse w >100 pack year h/o smoking H/o abdominal vascular ectasia Severe left renal artery stenosis Mild Right Renal Artery Stenosis Headache due to uncontrolled HTN Depression acute kidney injury due to pancreatitis , lisinopril use in the setting of SEVERE left renal artery stenosis & mild right PATRICIA DISCHARGE MEDICATIONS: see below DISCHARGE INSTRUCTIONS: DO NOT USE LAMAR INHIBITORS DUE TO SEVERE LEFT RENAL ARTERY STENOSIS AND RISK OF RENAL FAILURE. PCP TO REFER TO VASCULAR SURGERY FOR LEFT RENAL ARTERY STENTING. CHECK YOUR BLOOD PRESSURE BEFORE TAKING ISOSORBIDE AND HOLD IF BLOOD PRESSURE <120 MMHG. CALL YOUR DOCTOR IF BLOOD PRESSURE>150MMHG. HOSPITAL COURSE: 65 y/o w pmh 100pack year smoking, depression, atypical chest pain, sinus bradycardia, abdominal vascular ectasia w repeat imaging recommended in 3 yrs,? left renal artery stenosis c/o acute onset epigastric abd pain at 8:30pm last night w n/v/ decreased appetite w/o fever, chills, jaundice, and denies history of etoh abuse or gallstones in the past. Pt did not take any medications for the pain, but pain was persistent 10/10 "like someone punched me in the stomach" w/o radiation between the shoulder blades or the back. He denies acholic white colored fatty stools, trauma to the abdomen, prior history of hypertryglyceridemia,or spider bite. pt has been on lisinopril. In the ER, CT abd: pancreatitis, ?left renal artery stenosis, and lipase>100. He denies any dysuria, urgency, frequency. sbp was 189 w c/o headache w/o chest pressure/tightness, changes in vision, or sob.Hospitalist was called to admit for acute pancreatitis and acute hypertensive urgency due to pain and ivfluids. Acute nonalcoholic acalculous pancreatitis -s/p npo. ivfluids. mrcp negative. -dc'ed lisinopril -advanced diet since lipase is normal. -tolerating diet w/o n/v/or worsening abdominal pain -hypoglycemic protocol possible lisinopril-induced pancreatitis -dced lisinopril Hypertensive Urgency -resolved -became bradycardic with hr 44-50 bpm with atenolol and prn clonidine -initially given nitro paste q4h with good control, and changed to po atenolol but dc ed due to bradycardia -no lamar inh due to renal artery stenosis -isosorbide dinitrate 10 mg bid with holding parameters for sbp<120. pt to call his doctor if uncontrolled, to titrate dosage. sinus bradycardia -due to atenolol and clonidine . both of which have been discontinued Active Tobacco abuse w >100 pack year h/o smoking -cessation counselling -nicotine replacement H/o abdominal vascular ectasia -repeat imaging in 3 months Severe left renal artery stenosis -dce'd lisinopril -renal doppler confirmed -refer to vascular surgery for stent as outpt. Dr. Vu at [facility] is leaving the area, and is not accepting new patients. -avoid lamar inhibitors Mild right renal artery stenosis -avoid lamar inhibitors. acute kidney injury -resolved s/p ivfluids -due to pancreatitis and lisinopril-induced in the setting of severe left renal artery stenosis Headache due to uncontrolled HTN -resolved Depression -chronic DISCHARGE PHYSICAL EXAMINATION: VITAL SIGNS: see below GENERAL APPEARANCE: anicteric no pallor no distress lying on right lateral position. HEENT: PERRLA EOMI dry mm no jvd no carotid bruit CARDIOVASCULAR: S1S2 RRR. LUNGS: CTAB AEBE ABDOMEN: no tenderness +BS soft no rebound no guarding EXTREMITIES: no edema LABORATORY DATA: See below. IMAGING: see below MICROBIOLOGY: Please see below. TIME SPENT ON DISCHARGE: 30 MIN Vital Signs/I&Os Vital Signs Date Time Temp Pulse Resp B/P (MAP) Pulse Ox O2 Delivery O2 Flow Rate FiO2 10/05/20 08:48 144/74 10/05/20 05:26 96.9 54 20 96 Room Air I&O- Last 24 Hours up to 6 AM 10/05/20 06:00 Intake Total 0 ml Output Total 0 ml Balance 0 ml Laboratory Data Labs 24H Laboratory Tests 2 10/04/20 11:24: Lab Scanned Report Miscellaneous Lab 10/04/20 11:34: Bedside Glucose (Misc Panel) 159H 10/04/20 16:54: Bedside Glucose (Misc Panel) 157H 10/04/20 23:49: Bedside Glucose (Misc Panel) 173H 10/05/20 05:29: Bedside Glucose (Misc Panel) 171H 10/05/20 06:34: Nucleated Red Blood Cells % (auto) 0.0, Anion Gap 6L, Glomerular Filtration Rate > 60.0, Calcium Level 7.5L, Total Bilirubin 0.3, Aspartate Amino Transf (AST/SGOT) 11, Alanine Aminotransferase (ALT/SGPT) 15, Alkaline Phosphatase 52, Total Protein 6.4, Albumin 2.5L, Albumin/Globulin Ratio 0.6, Lipase 173 CBC/BMP Laboratory Tests 10/05/20 06:34 FSBS Laboratory Tests Test 10/04/20 11:34 10/04/20 16:54 10/04/20 23:49 10/05/20 05:29 Range/Units Bedside Glucose (Misc Panel) 159 157 173 171 80-115 MG/DL Microbiology Microbiology 10/03/20 Blood Culture - Preliminary, Resulted No growth after 24 hours . All specim... 10/03/20 Blood Culture - Preliminary, Resulted No growth after 24 hours . All specim... Discharge Medications Scheduled Aspirin (Aspirin EC) 81 Mg Tablet.dr, 81 MG PO DAILY, (Reported) Atorvastatin Calcium (Atorvastatin Calcium) 40 Mg Tablet, 40 MG PO DAILY, (Reported) Cholecalciferol (Vitamin D3) (Vitamin D3) 1,000 Unit Tablet, 1,000 UNITS PO DAILY, (Reported) Fluoxetine Hcl (Fluoxetine HCl) 20 Mg Capsule, 20 MG PO DAILY, (Reported) Gabapentin (Gabapentin) 300 Mg Capsule, 300 MG PO DAILY, (Reported) Isosorbide Dinitrate (Isosorbide Dinitrate) 10 Mg Tablet, 1 TAB PO BID Metformin HCl (Metformin HCl ER) 500 Mg Tab.er.24h, 500 MG PO DAILY, (Reported) PATIENT HAS BEEN TAKING TWICE A DAY Allergies Coded Allergies: Pertussis Vaccines (Verified Allergy, Severe, ANAPHYLAXIS, 11/27/18) JENNYFER CORONEL MD Oct 05, 2020 10:18
[2020-10-05 14:00] VITALS: BP 125/55
[2020-10-05 15:42] LABS: BLOOD UREA NITROGEN 11 MG/DL (7-18); CARBON DIOXIDE LEVEL 26 MEQ/L (21-32); CHLORIDE LEVEL 107 MEQ/L (98-107); CREATININE FOR GFR 1.11 MG/DL (0.70-1.30); GLOMERULAR FILTRATION RATE > 60.0 (>49); GLUCOSE, FASTING 151 MG/DL (70-100); POTASSIUM SERUM 3.4 MEQ/L (3.5-5.1); SODIUM LEVEL 138 MEQ/L (136-145)
[2020-10-05] MEDS ORDERED: NICO21PAT TD (16:16)
== END 2020-10-05 17:25 | disposition home or self-care (01) | DRG 282 ==
LOC: M ED 03:32 → M ED INP 10:51 → ENRESERV 11:35 → M MS5PR 12:45 → OBSVTOIN 10-04 11:06
PROVIDERS: ADMIT General Practice; ATTEND General Practice
DX: K85.30 Drug induced acute pancreatitis without necrosis or infection (principal); N17.9 Acute kidney failure, unspecified; I70.1 Atherosclerosis of renal artery; I16.0 Hypertensive urgency; F17.200 Nicotine dependence, unspecified, uncomplicated; F32.9 Major depressive disorder, single episode, unspecified; R51.9 Headache, unspecified; I77.811 Abdominal aortic ectasia; Z79.82 Long term (current) use of aspirin; Z79.899 Other long term (current) drug therapy; Z88.7 Allergy status to serum and vaccine

== ENCOUNTER → 2020-12-07 | Outpatient (CLI) | payer OTHER ==
[~2020-12-07] MED LIST changes: +ASPI-161 PO; +D-50CAP PO; +D31000TA2 PO; +FLUO20CA22 PO; +GABA-282 PO; +ISOS1TAB13 PO; +LISI10TA22 PO; +METF-838 PO; +NICO21PAT TD; +PURE500C5 PO; +SELF1KIT MC; +XARE20TA PO
== END ==
LOC: M LABSMTC 12:54
PROVIDERS: ATTEND Anesthesiology
DX: Z01.812 Encounter for preprocedural laboratory examination (principal); Z20.822 Contact with and (suspected) exposure to COVID-19

== ENCOUNTER 2020-12-12 06:00 | Day surgery (SDC) | payer OTHER ==
[~2020-12-12] VITALS: Ht 177.8 cm; Wt 90.8 kg
[~2020-12-12 06:00] MED LIST changes: +LR 1,000 ML IV ONE
[2020-12-12] MEDS ORDERED: LIDOCAINE 2% 100MG/5ML SDV (FOR ANES.) As Ordered ONE (07:17)
[2020-12-12] MEDS ORDERED: propofoL 200 MG/20 ML VIAL As Ordered ONE (07:17)
[2020-12-12] MEDS ORDERED: ONDANSETRON 4MG/2ML VIAL IV PRN (08:10)
[2020-12-12] MEDS ORDERED: LR 1,000 ML IV SCH (08:10)
[2020-12-12 08:27] VITALS: BP 179/71
--- NOTE | 2020-12-12 08:35 | ECGEPIP ---
[facility] Test Date: 2020-12-12 Pat Name: SB OSULLIVAN Department: Room: - Gender: Male Standards Analyst: SURESH : 1955 Requested By: Wes Polk Order Number: [id number] Reading MD: Gigi Ibanez Measurements Intervals [place] Rate: 57 P: -80 MO: QRS: -2 QRSD: 100 T: 35 QT: 434 QTc: 422 Interpretive Statements Atrial flutter with variable AV block Rhythm change from tracing done 10-03-20 Electronically Signed on 12-12-2020 8:35:07 EDT by Gigi Ibanez
--- NOTE | 2020-12-12 08:38 | ECGEPIP ---
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
--- NOTE | 2020-12-12 08:48 | RO ---
OPERATIVE NOTE DATE OF OPERATION: 12/12/2020 PREOPERATIVE DIAGNOSIS: Atrial flutter POSTOPERATIVE DIAGNOSIS: Sinus rhythm PROCEDURE: Cardioversion. SURGEON: Wes Polk M.D. SAFEMAKER: None. ANESTHESIA: Girish Fleming CRNA. INDICATIONS FOR PROCEDURE: Mr. Clayton is a 65-year-old man who has had persistent atrial flutter since 10/25/2020. He was rate controlled without any rate controlling medications and almost asymptomatic. He was started on Xarelto for anticoagulation and brought for elective cardioversion. The nature of the procedure, its possible complications and alternatives were discussed with the patient on an outpatient basis and he did sign appropriate consent. I went over the consent with him again today and I repeated and explained the nature of the procedure in great detail. DESCRIPTION OF PROCEDURE: The procedure was performed in the recovery room. The patient presented in a fasting condition. After appropriate time-out was taken, he was cardioverted with single shock of 200 joules delivered in a synchronized fashion. This led to taoist of sinus rhythm without post-conversion pause. There were no immediate complications and the patient tolerated the procedure well. A 12-lead EKG is pending at the time of my dictation. The patient will be discharged home later today, provided not unforeseen complications occur. I tentatively plan to see him in follow-up next week. His chronic medications will be continued. FELIPE
== END 2020-12-12 08:27 | disposition home or self-care (01) ==
LOC: M SDC 06:00
PROVIDERS: ATTEND Internal Medicine Cardiovascular Disease
DX: I48.92 Unspecified atrial flutter (principal); I25.10 Atherosclerotic heart disease of native coronary artery without angina pectoris; I10 Essential (primary) hypertension; E11.9 Type 2 diabetes mellitus without complications; Z79.84 Long term (current) use of oral hypoglycemic drugs; E78.2 Mixed hyperlipidemia; Z79.01 Long term (current) use of anticoagulants; Z79.82 Long term (current) use of aspirin; F17.218 Nicotine dependence, cigarettes, with other nicotine-induced disorders; Z88.7 Allergy status to serum and vaccine; I65.23 Occlusion and stenosis of bilateral carotid arteries; F32.9 Major depressive disorder, single episode, unspecified; Z79.899 Other long term (current) drug therapy

== ENCOUNTER → 2020-12-14 | Outpatient (CLI) | payer OTHER ==
[~2020-12-14] MED LIST changes: +ISOVUE-370 76% 100ML VIAL ONE; -LR 1,000 ML IV ONE
--- NOTE | 2020-12-14 11:41 | REP ---
INDICATION: RENAL ARTERY ATHEROSCLEROSIS. COMPARISON: COMPARISON IS MADE WITH CT STUDY FROM OCTOBER 03, 2020 AND RENAL CYST DOPPLER ULTRASOUND FROM OCTOBER 04, 2020.. TECHNIQUE: HELICAL SCANNING IS ACQUIRED FOLLOWING THE INTRAVENOUS INJECTION OF 100 ML OF ISOVUE 370. 3 MM AXIAL IMAGES RE-FORMATTED. CORONAL MULTIPLANAR RE-FORMATION IMAGE SEQUENCES PROVIDED. 3D SURFACE RENDERED SEQUENCES PROVIDED. FINDINGS: Preliminary digital health care marketing manager radiograph is unremarkable. On axial CT images, today's study shows a low-density lesion in the body of the pancreas just to the right of midline measuring 2.9 x 3.1 cm by 2.7 cm. Prior studies from 01/25/2021 showed pancreatitis pattern. The intrapancreatic fluid collection is consistent with developing pseudocyst or resolving pancreatic hematoma. The peripancreatic soft tissues are unremarkable. Pancreatic mass lesion is difficult to exclude. No abnormality is noted in the gallbladder. There is an accessory splenule at the inferior aspect of the spleen tip. There is an infrarenal abdominal aortic aneurysm measuring 3.5 cm in greatest diameter. Atherosclerotic plaquing is observed. The there is mild stenosis of the origin of the celiac axis. Calcific plaquing is seen at the origin of the SMA without high-grade stenosis. The right renal artery is singular with calcific plaquing and mild narrowing. There is evidence of high-grade pinpoint stenosis of the left renal artery versus short segment occlusion. Beyond the stenosis, the left renal artery is diminutive. The left kidney shows mild diffuse cortical atrophy. It measures 9.1 cm in length. The right renal length is 10.7 cm. The renal arteries are not duplicated. There is heavy calcification at the aortic bifurcation. [id number] bilateral common iliac artery stenoses suspected. IMPRESSION: High-grade pinpoint, greater than 95% stenosis versus short segment occlusion confirmed in the left main renal artery. Extensive atherosclerotic plaquing. Small abdominal aortic aneurysm. <Electronically signed by Wilber Rodriguez > 12/14/20 0425
== END ==
LOC: M PLAIMG 10:22
PROVIDERS: ATTEND Surgery Vascular Surgery
DX: I70.1 Atherosclerosis of renal artery (principal)
CPT/HCPCS: 74175; Q9967

== ENCOUNTER → 2021-08-29 | Outpatient (CLI) | payer OTHER ==
[~2021-08-29] MED LIST changes: -D31000TA2 PO; -FLUO10CA16 PO; +FLUO10CA18 PO; +ISOS10TA3 PO; -ISOS1TAB13 PO; -ISOVUE-370 76% 100ML VIAL ONE; +VITA100093 PO
== END ==
LOC: M RAD 09:54
PROVIDERS: ATTEND Physician Assistant Medical
DX: F17.210 Nicotine dependence, cigarettes, uncomplicated (principal)

== ENCOUNTER → 2022-09-22 | Outpatient (CLI) | payer OTHER ==
[~2022-09-22] MED LIST changes: +ASCO500C3 PO; -DOXY-350 PO; +DOXY-444 PO; -PURE500C5 PO
== END ==
LOC: M RAD 13:48
PROVIDERS: ATTEND Physician Assistant Medical
DX: Z12.2 Encounter for screening for malignant neoplasm of respiratory organs (principal); F17.210 Nicotine dependence, cigarettes, uncomplicated; J43.9 Emphysema, unspecified; J47.9 Bronchiectasis, uncomplicated; I70.0 Atherosclerosis of aorta; I25.10 Atherosclerotic heart disease of native coronary artery without angina pectoris

== ENCOUNTER → 2022-11-06 | Outpatient (CLI) | payer OTHER | LOC: M RAD 10:47 | PROVIDERS: ATTEND Nurse Practitioner Family | DX: I70.213 Atherosclerosis of native arteries of extremities with intermittent claudication, bilateral legs (principal) ==

== ENCOUNTER → 2022-11-27 | Outpatient (REF) | payer OTHER ==
[2022-11-28 18:07] LABS: PERCENT SATURATION 10.5 % (19.7-50.0)
== END ==
LOC: M LAB REF 17:16
PROVIDERS: ATTEND Internal Medicine Nephrology
DX: D50.9 Iron deficiency anemia, unspecified (principal)

== ENCOUNTER → 2022-12-10 | Outpatient (CLI) | payer OTHER | LOC: M RAD 10:00 | PROVIDERS: ATTEND Physician Assistant Medical | DX: F17.210 Nicotine dependence, cigarettes, uncomplicated (principal) ==

== ENCOUNTER 2023-07-29 07:50 | Day surgery (SDC) | payer OTHER ==
[~2023-07-29] VITALS: Ht 177.8 cm; Wt 95.5 kg
[~2023-07-29 07:50] MED LIST changes: +AMLO1TAB25 PO; -ASPI-161 PO; +ASPI-615 PO; +ATOR80TA59 PO; +CYAN-1 PO; +GLIM2TAB29 PO; +IFERCAP PO; +LOSA100T46 PO; +SPIR-10 PO
[2023-07-29] MEDS: NS 1,000 ML IV ONE (08:24)
[2023-07-29] MEDS ORDERED: fentaNYL 100 MCG/2 ML INJECTION As Ordered ONE (09:41)
[2023-07-29] MEDS ORDERED: LIDOCAINE 2% 100MG/5ML SDV (FOR ANES.) As Ordered ONE (09:41)
[2023-07-29] MEDS ORDERED: propofoL 200 MG/20 ML VIAL As Ordered ONE (09:41)
[2023-07-29 10:31] VITALS: TEMP 98
[2023-07-29 11:04] VITALS: BP 161/77; O2SAT 94
== END 2023-07-29 11:13 | disposition home or self-care (01) ==
LOC: M OPP 07:50
PROVIDERS: ATTEND Internal Medicine Gastroenterology
DX: Z12.11 Encounter for screening for malignant neoplasm of colon (principal); K64.4 Residual hemorrhoidal skin tags; K64.0 First degree hemorrhoids; K57.30 Diverticulosis of large intestine without perforation or abscess without bleeding; K21.00 Gastro-esophageal reflux disease with esophagitis, without bleeding; K22.89 Other specified disease of esophagus; R12 Heartburn; K92.1 Melena; I48.91 Unspecified atrial fibrillation; Z95.5 Presence of coronary angioplasty implant and graft; E11.9 Type 2 diabetes mellitus without complications; I10 Essential (primary) hypertension; F17.200 Nicotine dependence, unspecified, uncomplicated; Z79.01 Long term (current) use of anticoagulants; Z79.02 Long term (current) use of antithrombotics/antiplatelets; Z79.82 Long term (current) use of aspirin; Z79.84 Long term (current) use of oral hypoglycemic drugs; Z79.899 Other long term (current) drug therapy; Z88.7 Allergy status to serum and vaccine
CPT/HCPCS: 43239; 88305; G0121; J3010

== ENCOUNTER → 2023-10-19 | Outpatient (CLI) | payer OTHER ==
[~2023-10-19] MED LIST changes: +DOXY-440 PO; -DOXY-444 PO; +FLUO-290 PO; -FLUO10CA18 PO
== END ==
LOC: M RAD 09:06
PROVIDERS: ATTEND Internal Medicine Critical Care Medicine
DX: Z12.2 Encounter for screening for malignant neoplasm of respiratory organs (principal); F17.218 Nicotine dependence, cigarettes, with other nicotine-induced disorders; I25.10 Atherosclerotic heart disease of native coronary artery without angina pectoris; N26.1 Atrophy of kidney (terminal)

== ENCOUNTER → 2023-12-29 | Outpatient (CLI) | payer OTHER ==
[~2023-12-29] MED LIST changes: +FLUO-365 PO; -FLUO20CA22 PO; +ISOVUE-370 76% 100ML VIAL As Ordered ONE
== END ==
LOC: M RAD 08:56
PROVIDERS: ATTEND Physician Assistant
DX: I73.9 Peripheral vascular disease, unspecified (principal); I71.43 Infrarenal abdominal aortic aneurysm, without rupture; I70.0 Atherosclerosis of aorta; K55.9 Vascular disorder of intestine, unspecified; I70.1 Atherosclerosis of renal artery; I70.203 Unspecified atherosclerosis of native arteries of extremities, bilateral legs; R91.1 Solitary pulmonary nodule; I25.10 Atherosclerotic heart disease of native coronary artery without angina pectoris
CPT/HCPCS: 75635; Q9967

== ENCOUNTER → 2024-02-12 | Outpatient (CLI) | payer OTHER ==
[~2024-02-12] MED LIST changes: -ISOVUE-370 76% 100ML VIAL As Ordered ONE
== END ==
LOC: M PLARAD 09:33
PROVIDERS: ATTEND Surgery Vascular Surgery
DX: M48.07 Spinal stenosis, lumbosacral region (principal); M51.26 Other intervertebral disc displacement, lumbar region; M47.816 Spondylosis without myelopathy or radiculopathy, lumbar region; M47.817 Spondylosis without myelopathy or radiculopathy, lumbosacral region; M48.061 Spinal stenosis, lumbar region without neurogenic claudication